=== PATIENT | female | born 1970 ===

== ENCOUNTER 2021-08-06 06:13 | Day surgery (SDC) | payer OTHER ==
[2021-08-06] MEDS ORDERED: DUI500 PO (11:55)
[2021-08-06] MEDS ORDERED: TRAMADOL HCL50 MG PO (11:55)
== END 2021-08-06 15:20 | disposition home or self-care (01) ==
LOC: CIR.AMB 06:13
PROVIDERS: ATTEND Orthopaedic Surgery Sports Medicine
DX: S92.351A Displaced fracture of fifth metatarsal bone, right foot, initial encounter for closed fracture (principal); Z88.6 Allergy status to analgesic agent; Z71.6 Tobacco abuse counseling; F17.210 Nicotine dependence, cigarettes, uncomplicated; Z20.822 Contact with and (suspected) exposure to COVID-19
CPT/HCPCS: 28485; L8699